=== PATIENT | male | born 1970 | race Caucasian/White ===

== ENCOUNTER 2019-02-21 18:21 | Emergency (ER) | payer BC ==
[~2019-02-21] VITALS: Ht 172.7 cm; Wt 93.9 kg
[2019-02-21 18:31] VITALS: BP 153/92
--- NOTE | 2019-02-21 18:55 | NUR ---
PT TO ER BED 3
--- NOTE | 2019-02-21 19:23 | NUR ---
48 Y/O MALE PRESENTS TO ED WITH C/O SEVERE 8/10 RIGHT WRIST/HAND PAIN X30 MIN. PT STATES FALL AND LANDED ON LEFT WRIST. 1+ NON-PITTING EDEMA PRESENT. NO DEFORMITIES NOTED. BILAT UPPER EXTREMITY PULSES STRONG/EQUAL. TINGLING NOTED LEFT FIRST DIGIT. CAP REFILL <3 SEC. ER MD AT BEDSIDE FOR EVALUATION. CONTINUE TO MONITOR.
--- NOTE | 2019-02-21 19:23 | NUR ---
Yanna chacon in [place] - 02/21/19 at 1924 by JOHN REPORT GIVEN TO DANNY SMITH
[2019-02-21] MEDS ORDERED: IBUPROFEN 800 MG TAB PO ONE (19:30)
[2019-02-21 20:45] VITALS: BP 115/66
--- NOTE | 2019-02-21 20:45 | NUR ---
Patient discharged with v/s stable. Written and verbal after care instructions given and explained. Patient verbalized understanding. Ambulatory with steady gait. All questions addressed prior to discharge. Advised to follow up with PMD. Referrals to a few orthopedics given to patient for follow up. Work excuse provided to allow patient to return to work Saturday02/23/[address] Franz.
== END 2019-02-21 20:45 | disposition home or self-care (01) ==
LOC: MED 18:21
DX: S63.502A Unspecified sprain of left wrist, initial encounter (principal); W18.09XA Striking against other object with subsequent fall, initial encounter; Y93.89 Activity, other specified; Y92.89 Other specified places as the place of occurrence of the external cause; Y99.8 Other external cause status
CPT/HCPCS: 29125; 73130; 99283; Q0092